=== PATIENT | female | born 1980 | race Caucasian/White ===

== ENCOUNTER → 2018-04-16 | Outpatient (CLI) | payer BC ==
[~2018-04-16] MED LIST: CETI10TA17; DCS100C PO; DOCU100C37 PO; HYDR-700; HYDR1TAB75 PO; IBP800T PO; IBUP-1780 PO; LEVO88TA54 PO; METH4TAB; OXYC-465 PO; PREN1TAB39
--- NOTE | 2018-04-16 19:05 | Diagnostic Imaging Report ---
INDICATION: Screening, bilateral. The report was also performed with the Computer Aided Detection (CAD) system. COMPARISON: No prior examinations are available for comparison. FINDINGS: There is moderately dense fibroglandular tissue bilaterally. There are a few benign type calcifications. There is no dominant mass, spiculated lesion or suspicious calcification identified. The skin, nipples and axillae are unremarkable. IMPRESSION: Category 2, benign. ACR BI-RADS Category 2: Benign findings. Result letter will be mailed to the patient. Note: At least 10% of breast cancer is not imaged by mammography. Dictated by: Dictated on workstation # [id number]
== END ==
LOC: RAD 13:55
PROVIDERS: ATTEND Obstetrics & Gynecology
DX: Z12.31 Encounter for screening mammogram for malignant neoplasm of breast (principal)
CPT/HCPCS: 77067

== ENCOUNTER 2018-09-12 17:20 | Emergency (ER) | payer BC ==
[~2018-09-12] VITALS: Ht 170.2 cm; Wt 77.1 kg
--- NOTE | 2018-09-12 18:14 | ED Fall/Injury ---
General Chief Complaint: Trauma-Non Activation Stated Complaint: FALL,R SIDE OF HEAD PAIN Nursing Triage Note: X2 abrasion noted to superior rt eyebrow. Abrasion noted to lateral aspect of rt wrist. Swelling and bruising noted to rt pinky finger. Pain to lt knee. Source: patient Exam Limitations: no limitations History of Present Illness Date Seen by Provider: Sep 12, 2018 Time Seen by Provider: 18:12 Initial Comments To ER per private vehicle with reports of having tripped and fallen on her way home from work. She did hit the right side of her head on the ground, no loss of consciousness, does have a headache. Has some right hand tingling, abrasion to the dorsal aspect of the wrist over the ulnar styloid, abrasion to the palm of the hand. Location Injury Occurred: [employer] Occurred: just prior to arrival Severity: moderate Context: tripped Loss of Consciousness: no loss of consciousness Associated Symptoms (Fall): Denies Symptoms Allergies and Home Medications Allergies Coded Allergies: No Known Drug Allergies (Unverified Allergy, Mild, 06/01/09) Home Medications Docusate Sodium 100 Mg Capsule, 100 MG PO BID Prescribed by: CONSTANTIN GERMAN on 12/04/14703 Ibuprofen 800 Mg Tablet, 800 MG PO Q6H Prescribed by: CONSTANTIN GERMAN on 12/04/14703 Levothyroxine Sodium 88 Mcg Tablet, 88 MCG PO DAILY, (Reported) Oxycodone HCl/Acetaminophen 1 Each Tablet, 1-2 TAB PO Q4H PRN for PAIN Prescribed by: CONSTANTIN GERMAN on 12/04/14703 Patient Home Medication List Home Medication List Reviewed: Yes Review of Systems Review of Systems Constitutional: see HPI Eyes: No Symptoms Reported Ears, Nose, Mouth, Throat: no symptoms reported Respiratory: no symptoms reported Cardiovascular: no symptoms reported Genitourinary: no symptoms reported Musculoskeletal: no symptoms reported Skin: no symptoms reported Psychiatric/Neurological: No Symptoms Reported Past Yhxoelt-Uzlbei-Hsjikd Hx Patient Social History Alcohol Use: Denies Use Recreational Drug Use: No Smoking Status: Never a Smoker 2nd Hand Smoke Exposure: No Recent Foreign Travel: No Contact w/Someone Who Travel: No Recent Infectious Disease Expo: No Recent Hopitalizations: Yes Immunizations Up To Date Tetanus Booster (TDap): Less than 5yrs Date of Influenza Vaccine: Nov 18, 2014 Past Medical History Respiratory: No Cardiac: No Neurological: Yes Headaches /Migraines Reproductive Disorders: Yes (Deviated septum in uterus) Female Reproductive Disorders: Denies Sexually Transmitted Disease: Yes (HPV) HIV/AIDS: No Genitourinary: No Gastrointestinal: No Musculoskeletal: No Endocrine: Yes Hypothyroidsim Loss of Vision: Denies Hearing Impairment: Denies Cancer: No Psychosocial: Yes Anxiety Integumentary: No Blood Disorders: No Adverse Reaction/Blood Tranf: No Family Medical History Alzheimer's disease Grandparents (Paternal Grandfather) Diabetes mellitus Grandparents (Paternal Grandmother) Hypercholesterolemia 19 MOTHER Prostate cancer 19 FATHER Thyroid disease 19 MOTHER Physical Exam Vital Signs Vital Signs - First Documented 09/12/18 17:40 Temp 98.7 Pulse 88 Resp 17 B/P (MAP) 141/103 (116) Pulse Ox 100 O2 Delivery Room Air Capillary Refill : Less Than 3 Seconds Height, Weight, BMI Height: 5'7.00" Weight: 170lbs. oz. [id number]; BMI Method:Stated General Appearance: WD/WN, no apparent distress Respiratory: no respiratory distress, no accessory muscle use Gastrointestinal: normal bowel sounds, non tender, soft Neurologic/Psychiatric: alert, normal mood/affect, oriented x 3, other (abrasion over the lateral right eyebrow) Skin: normal color, warm/dry [place] Coma Score Best Eye Response: (4) Open Spontaneously Best Verbal Response: (5) Oriented Best Motor Response: (6) Obeys Commands [place] Total: 15 Progress/Results/Core Measures Results/Orders My Orders Orders - GONZALO HAMMONDS APRN Hand, Right, 3 Views (09/12/18 18:10) Ct Head/Cervical Spine Wo (09/12/18 18:10) Vital Signs/I&O 09/12/18 17:40 Temp 98.7 Pulse 88 Resp 17 B/P (MAP) 141/103 (116) Pulse Ox 100 O2 Delivery Room Air Blood Pressure Mean: 116 Departure Impression Primary Impression: Abrasion of hand Qualified Codes: S60.511A - Abrasion of right hand, initial encounter Additional Impression: Minor head injury Qualified Codes: S09.90XA - Unspecified injury of head, initial encounter Disposition: 01 HOME, SELF-CARE Condition: Stable Departure-Patient Inst. Decision time for Depature: 19:32 Referrals: GENE DENNIS MD (PCP/Family) Primary Care Physician Patient Instructions: Minor Head Injury, Skin Abrasions Add. Discharge Instructions: All discharge instructions reviewed with patient and/or family. Voiced understanding. GONZALO HAMMONDS TOOLER Sep 12, 2018 18:14
--- NOTE | 2018-09-12 19:10 | Diagnostic Imaging Report ---
EXAM: HAND, RIGHT, 3 VIEWS INDICATION: Fall. Pain in third through fifth fingers. COMPARISON: None. FINDINGS: No fracture or malalignment. No suspicious osteoblastic or lytic lesions. Soft tissue shadows are unremarkable. IMPRESSION: Negative right hand radiographs. Dictated by: Dictated on workstation # [id number]
--- NOTE | 2018-09-12 19:30 | Diagnostic Imaging Report ---
PROCEDURE: CT head and CT cervical spine without contrast. TECHNIQUE: Multiple contiguous axial images were obtained through the brain and cervical spine without the use of intravenous contrast. Sagittal and coronal reformations through the cervical spine were then performed. Auto Exposure Controls were utilized during the CT exam to meet ALARA standards for radiation dose reduction. INDICATION: Traumatic head/neck injury. COMPARISON: None available. FINDINGS - CT BRAIN: BRAIN: No parenchymal hemorrhage, midline shift or mass effect. Hubbard-white matter differentiation is intact. No acute infarct. No white matter lesions. Ventricles, sulci and basilar cisterns are normal. EXTRA-AXIAL SPACES: No subdural or epidural collections. ORBITS AND PARANASAL SINUSES: Visualized orbits and globes are intact. Visualized paranasal sinuses and mastoid air cells are clear. CALVARIUM AND SOFT TISSUES: The calvarium is intact. No fractures or suspicious bony lesions. The extracranial soft tissues are unremarkable. FINDINGS - CT CERVICAL SPINE: SPINE: No fracture. No acute osseous abnormalities. There is straightening of cervical lordosis, likely positional in nature. No subluxation. Intervertebral disc spaces are normal in height. No locked or perched facet. SOFT TISSUES AND LUNG APICES: Soft tissues unremarkable. Clear lung apices. IMPRESSION: - CT BRAIN: No acute intracranial pathology. IMPRESSION: - CT CERVICAL SPINE: No acute cervical fracture or subluxation. Dictated by: Dictated on workstation # [id number]
[2018-09-12 19:39] VITALS: BP 134/91
--- OUTSIDE RECORDS SUMMARY | 2018-09-12 20:00 | XMS REPORT ---
Author LUCERO Marrero [facility] eClinicalWorks Address Unknown Phone Unavailable Care Team Providers [facility] Name Role Phone LUCERO PADILLA CP Unavailable Allergies No Known Allergies Problems Problem Type Condition ICD-9 Code Onset Dates Condition Status Assessment TDAP DX V06.1 Active Medications No Known Medications Procedures Procedure Coding System Code Date IMMUNIZATION ADMIN, EACH ADD (please include units) CPT-4 75174 Oct 22, 2014 TDAP (BOOSTRIX) CPT-4 17233 Oct 22, 2014 Results No Known Results Immunizations Vaccine Administration Date TDAP (BOOSTRIX) Oct 22, 2014 Summary Purpose eClinicalWorks Submission
--- OUTSIDE RECORDS SUMMARY | 2018-09-12 20:00 | XMS REPORT | Continuity of Care Document ---
Author Organization Unknown Address Unknown Allergies Active Description Code Type Severity Reaction Onset Reported/Identified Relationship to Patient Clinical Status Yes No Known Drug Allergies [id number] Drug Allergy Mild N/A 06/01/2009 Medications There is no data. Problems Date Dx Coded Attending Type Code Diagnosis Diagnosed By 06/05/2009 Ot 621.5 INTRAUTERINE SYNECHIAE 06/05/2009 Ot 752.2 DOUBLING OF UTERUS 06/16/2010 Ot 646.81 06/16/2010 Ot 652.21 06/16/2010 Ot 660.01 06/16/2010 Ot V06.1 06/16/2010 Ot V27.0 11/04/2014 Ot 285.9 11/04/2014 Ot 752.2 11/04/2014 Ot V72.63 11/04/2014 Ot V74.8 12/05/2014 CONSTANTIN PRIDE MD Ot O34.21 MATERNAL CARE FOR SCAR FROM PREVIOUS MALACHI 12/05/2014 CONSTANTIN PRIDE MD Ot Z37.0 SINGLE LIVE 04/17/2018 CONSTANTIN PRIDE MD Ot Z12.31 ENCNTR SCREEN MAMMOGRAM FOR MALIGNANT NE 05/06/2018 CONSTANTIN PRIDE MD Ot Z12.31 ENCNTR SCREEN MAMMOGRAM FOR MALIGNANT NE Procedures Code Description Performed By Performed On 64A10W9 EXTRACTION OF POC, LOW CERVICAL, OPEN AP 12/03/2014 Results There is no data. Encounters ACCT No. Visit Date/Time Discharge Status Pt. Type Provider Facility Loc./Unit Complaint [id number] 04/16/2018 13:55:00 04/16/2018 23:59:59 CLS Outpatient CONSTANTIN PRIDE MD [facility] RAD BASELINE SCREENING [id number] 12/03/2014 10:37:00 12/05/2014 14:35:00 DIS Inpatient OCNSTANTIN PRIDE MD [facility] LDRP REPEAT [id number] 03/23/2013 15:12:00 03/23/2013 23:59:59 CLS Outpatient [id number] 11/04/2014 13:35:00 Document Registration [id number] 11/04/2014 13:35:00 Document Registration [id number] 06/13/2010 14:58:00 Document Registration [id number] 06/04/2009 05:40:00 Document Registration
== END 2018-09-12 19:39 | disposition home or self-care (01) ==
LOC: EDUNIT# 17:20 → ER 17:21
DX: S09.90XA Unspecified injury of head, initial encounter (principal); S60.511A Abrasion of right hand, initial encounter; S00.211A Abrasion of right eyelid and periocular area, initial encounter; R40.2142 Coma scale, eyes open, spontaneous, at arrival to emergency department; R40.2252 Coma scale, best verbal response, oriented, at arrival to emergency department; R40.2362 Coma scale, best motor response, obeys commands, at arrival to emergency department; G43.909 Migraine, unspecified, not intractable, without status migrainosus; E03.9 Hypothyroidism, unspecified; F41.9 Anxiety disorder, unspecified; Z80.42 Family history of malignant neoplasm of prostate; W01.198A Fall on same level from slipping, tripping and stumbling with subsequent striking against other object, initial encounter; Y92.59 Other trade areas as the place of occurrence of the external cause; Y99.0 Civilian activity done for income or pay
CPT/HCPCS: 70450; 72125; 73130; 84703

== ENCOUNTER → 2021-09-21 | Outpatient (CLI) | payer BC ==
[~2021-09-21] MED LIST changes: -OXYC-465 PO; +OXYC-556 PO
--- NOTE | 2021-09-22 08:53 | Diagnostic Imaging Report ---
INDICATION: Routine screening. COMPARISON: 04/16/2018. TECHNIQUE: 2D and 3D bilateral screening mammography was performed with CAD. FINDINGS: Both breasts are heterogeneously dense, limiting the sensitivity of mammography. The parenchymal pattern is stable. No mass or malignant-appearing microcalcifications are seen. The axillae are unremarkable. IMPRESSION: No mammographic features suspicious for malignancy are identified. ACR BI-RADS Category 2: Benign findings. Result letter will be mailed to the patient. Note: At least 10% of breast cancer is not imaged by mammography. Dictated by: Dictated on workstation # [id number]
== END ==
LOC: RAD 14:40
PROVIDERS: ATTEND Obstetrics & Gynecology
DX: Z12.31 Encounter for screening mammogram for malignant neoplasm of breast (principal)
CPT/HCPCS: 77063; 77067

== ENCOUNTER → 2021-10-12 | Outpatient (CLI) | payer BC ==
--- NOTE | 2021-10-12 18:35 | Diagnostic Imaging Report ---
PROCEDURE: US Thyroid. TECHNIQUE: Multiple real-time grayscale images were obtained of the thyroid in various projections. INDICATION: Thyromegaly Right lobe of the thyroid measures 3.7 x 1.4 x 1.2 cm. Left lobe measures 3.9 x 1.0 x 1.0 cm. Isthmus measures 2 mm in thickness. The thyroid has heterogeneous echogenicity sleeve there is discrete mass or nodule is not seen. There does not appear to be increased vascularity. IMPRESSION: Heterogeneous echogenicity of the thyroid could be from resolved thyroiditis Dictated by: Dictated on workstation # [id number]
== END ==
LOC: RAD 14:00
PROVIDERS: ATTEND Nurse Practitioner Family
DX: E01.0 Iodine-deficiency related diffuse (endemic) goiter (principal)
CPT/HCPCS: 76536